=== PATIENT | female | born 1965 | race Caucasian/White ===

== ENCOUNTER 2020-08-07 08:31 | Outpatient (CLI) | payer MEDICARE ==
[2020-08-07] MEDS ORDERED: REGADENOSON 0.4 MG/5 ML SYRINGE ONE (12:11)
== END 2020-08-08 23:59 | disposition home or self-care (01) ==
LOC: CFH 08:31
PROVIDERS: ATTEND Internal Medicine Cardiovascular Disease
DX: R06.02 Shortness of breath (principal)
CPT/HCPCS: 78452; 93017; A9502; J2785